=== PATIENT | male | born 1975 | race Caucasian/White ===

== ENCOUNTER → 2020-02-04 | Outpatient (CLI) | payer MEDICARE ==
[~2020-02-04] MED LIST: B/P MEDS; METH4TAB PO
== END ==
LOC: CARD 11:20
PROVIDERS: ATTEND Nurse Practitioner Family
DX: I51.7 Cardiomegaly (principal)
CPT/HCPCS: 93306

== ENCOUNTER → 2021-04-27 | Outpatient (CLI) | payer MEDICARE ==
[~2021-04-27] MED LIST changes: +GADOBUTROL 10 MMOL/10 ML (GADAVIST) VIAL IV ONE
--- NOTE | 2021-04-27 17:14 | Diagnostic Imaging Report ---
PROCEDURE: MRI lumbar spine with and without contrast. TECHNIQUE: Multiplanar, multisequence MRI of the lumbar spine was performed with and without contrast. INDICATION: Worsened low back pain, previous lumbar instrumentation several years ago. COMPARISON: Exam is compared with a study performed 09/27/2011. Comparison study is a hla-oteayvlo-nzysumob MR prior to the surgical changes described below. FINDINGS: Since the previous exam, lumbosacral posterior and interbody fusion has been performed with bipedicular screws and vertical rods and L5 decompressive laminectomy. There is no fluid collection within the operative bed. No suspicious enhancing epidural tissue. Thecal sac at the level of laminectomy is successfully decompressed. There is also resolution of the left lateral recess impingement and improvements in what is now mild or ejsz-qi-lejeafiy biforaminal stenosis. Blooming artifact somewhat limits the L4-L5 level. There are buckled thickened ligamenta flava and hypertrophic facet arthrosis. The posterior element hypertrophy has increased in the interim, now with moderate resultant canal stenosis with moderate biforaminal narrowing increased. The L3-L4 disc shows desiccation and stature loss, increased from prior with mild endplate spurring and mild biforaminal stenosis but no substantial canal narrowing. The remaining levels are unremarkable. The conus appeared normal. There is normal dispersal of the nerves of the cauda equina. IMPRESSION: 1. Increased stenosis at L4-L5 spinal canal and neural foramina is secondary to progressive hypertrophic facet arthrosis and increased thickening of the ligamenta flava as well as similar endplate osteophytes and disc bulge. 2. Favorable changes at the L5-S1 level where there is decompressive laminectomy, improved foraminal stenosis, and resolution of canal stenosis. Dictated by: Dictated on workstation # [id number]
== END ==
LOC: RAD 10:24
PROVIDERS: ATTEND Nurse Practitioner Family
DX: M48.07 Spinal stenosis, lumbosacral region (principal); M47.816 Spondylosis without myelopathy or radiculopathy, lumbar region; M25.78 Osteophyte, vertebrae; M51.26 Other intervertebral disc displacement, lumbar region; M89.38 Hypertrophy of bone, other site; Z98.890 Other specified postprocedural states
CPT/HCPCS: 72158

== ENCOUNTER 2022-12-24 18:29 | Inpatient (IN) | payer MEDICARE ==
[~2022-12-24] VITALS: Ht 175.3 cm; Wt 86.0 kg
[2022-12-24] VITALS (10 sets, daily range): BP systolic 102–151; BP diastolic 86–119
[~2022-12-24 18:29] MED LIST changes: -GADOBUTROL 10 MMOL/10 ML (GADAVIST) VIAL IV ONE
[2022-12-24] MEDS ORDERED: LACTATED RINGERS 1,000 ML IV ONE ×2 (18:45→20:00)
[2022-12-24] MEDS ORDERED: NALOXONE 0.4 MG/ML 1 ML (NARCAN) VIAL ONE (19:20)
[2022-12-24] MEDS ORDERED: NALOXONE 2 MG/2 ML (NARCAN) SYR ONE (19:21)
[2022-12-24 19:30] LABS: BASOPHILS % (AUTO) 0 % (0-10); EOSINOPHILS # (AUTO) 0.2 10^3/uL (0.0-0.3); EOSINOPHILS % (AUTO) 1 % (0-10); HEMATOCRIT 43 % (40-54); HEMOGLOBIN 14.4 g/dL (13.3-17.7); LYMPHOCYTES # (AUTO) 1.2 10^3/uL (1.0-4.0); LYMPHOCYTES % (AUTO) 9 % (12-44); MEAN CORPUSCULAR HEMOGLOBIN 31 pg (25-34); MEAN CORPUSCULAR HGB CONC 34 g/dL (32-36); MEAN CORPUSCULAR VOLUME 92 fL (80-99); MEAN PLATELET VOLUME 9.5 fL (9.0-12.2); MONOCYTES % (AUTO) 7 % (0-12); NEUTROPHILS # (AUTO) 11.1 10^3/uL (1.8-7.8); NEUTROPHILS % (AUTO) 83 % (42-75); PLATELET COUNT 317 10^3/uL (130-400); WHITE BLOOD COUNT 13.4 10^3/uL (4.3-11.0)
[2022-12-24] MEDS ORDERED: NALOXONE 2 MG/2 ML (NARCAN) SYR IV ONE (19:30)
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
[2022-12-24 19:33] LABS: BILIRUBIN,URINE NEGATIVE (NEGATIVE); CLARITY,URINE SL CLOUDY; COLOR,URINE YELLOW; GLUCOSE, URINE (UA) NEGATIVE (NEGATIVE); KETONES,URINE NEGATIVE (NEGATIVE); LEUKOCYTE ESTERASE ,URINE 2+ (NEGATIVE); NITRITE,URINE NEGATIVE (NEGATIVE); PROTEIN,URINE 2+ (NEGATIVE)
[2022-12-24 19:47] LABS: BACTERIA,URINE MODERATE /HPF; RENAL EPITHELIAL CELLS,URINE 0-2 /HPF
[2022-12-24 19:48] LABS: GRANULAR CASTS,URINE 0-2 /LPF
[2022-12-24 19:50] LABS: AMORPHOUS SEDIMENT,UR MOD AMOR URATES /LPF
[2022-12-24 19:54] LABS: AMPHETAMINE SCREEN, URINE NEGATIVE (NEGATIVE); BARBITURATE SCREEN URINE NEGATIVE (NEGATIVE); BENZODIAZEPINES SCREEN URINE NEGATIVE (NEGATIVE); CANNABINOID SCREEN, URINE NEGATIVE (NEGATIVE); COCAINE SCREEN URINE NEGATIVE (NEGATIVE); METHADONE STAT NEGATIVE (NEGATIVE); OPIATE SCREEN URINE NEGATIVE (NEGATIVE); OXYCODONE STAT NEGATIVE (NEGATIVE); PROPOXYPHENE STAT NEGATIVE (NEGATIVE); TRICYCLIC ANTIDEPRESSANTS SCRE POSITIVE (NEGATIVE)
[2022-12-24] MEDS ORDERED: NS IV 1000 ML 1,000 ML IV SCH (20:00)
[2022-12-24] MEDS ORDERED: CEFEPIME INJECTION 1,000 MG in NS (IVPB) 50 ML IV ONE (20:00)
--- NOTE | 2022-12-24 20:26 | Diagnostic Imaging Report ---
INDICATION: Sepsis, hypotension. COMPARISON: None available. TECHNIQUE: Single radiograph of the chest dated 12/24/2022. FINDINGS: The cardiac silhouette is enlarged. No significant pulmonary vascular congestion. The lungs are clear focal pulmonary opacity. No pleural effusion. No pneumothorax. No acute osseous abnormality. IMPRESSION: Cardiomegaly without pulmonary vascular congestion or additional superimposed acute cardiopulmonary abnormality. Dictated by: Dictated on workstation # [id number]
[2022-12-24 20:49] LABS: ALANINE AMINOTRANSFERASE 19 U/L (0-55); ALBUMIN 3.9 GM/DL (3.2-4.5); ALKALINE PHOSPHATASE 64 U/L (40-136); AMYLASE 78 U/L (25-125); BILIRUBIN,TOTAL 0.3 MG/DL (0.1-1.0); BUN/CREATININE RATIO 10; CALCIUM 8.7 MG/DL (8.5-10.1); CARBON DIOXIDE 17 MMOL/L (21-32); CHLORIDE 104 MMOL/L (98-107); CREATINE KINASE 91 U/L (30-200); CREATININE SERUM 3.63 MG/DL (0.60-1.30); GFR ESTIMATED 20; GLUCOSE 96 MG/DL (70-105); LIPASE 67 U/L (8-78); MAGNESIUM 2.1 MG/DL (1.6-2.4); POTASSIUM 4.4 MMOL/L (3.6-5.0); SODIUM 136 MMOL/L (135-145); TOTAL PROTEIN 6.9 GM/DL (6.4-8.2)
--- NOTE | 2022-12-24 20:53 | Diagnostic Imaging Report ---
PROCEDURE: CT head wo r/o stroke. TECHNIQUE: Multiple contiguous axial images were obtained through the brain without the use of intravenous contrast. Auto Exposure Controls were utilized during the CT exam to meet ALARA standards for radiation dose reduction. INDICATION: Stroke, neural deficit. COMPARISON: None available. FINDINGS: No intracranial hemorrhage. No intracranial mass, mass effect, midline shift, herniation, hydrocephalus, or extra-axial fluid collection. No definite CT evidence of an acute ischemic infarction. The orbits are unremarkable. The paranasal sinuses are clear. The calvarium and extra calvarial soft tissues are unremarkable. IMPRESSION: No acute intracranial abnormality. Should there remain clinical concern for recent infarction, further evaluation with MRI of brain would be recommended. Dictated by: Dictated on workstation # [id number]
[2022-12-24 21:12] LABS: CREATINE KINASE MB 2.1 NG/ML (<6.6); TSH (THYROID ANALYZER) 0.79 UIU/ML (0.35-4.94)
[2022-12-24 21:44] LABS: SALICYLATE < 5.0 MG/DL (5.0-20.0)
[2022-12-24 21:46] LABS: ACETAMINOPHEN < 10 UG/ML (10-30)
[2022-12-24] MEDS ORDERED: LIDOCAINE UROJET 2% GEL 10 ML PKG TOP ONE (22:15)
[2022-12-24] MEDS ORDERED: D5 LR IV SOLUTION 1,000 ML IV SCH (22:15)
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
[2022-12-24] MEDS ORDERED: CATHETER FLUSH 10 ML SYR IVP PRN (22:45)
[2022-12-24] MEDS ORDERED: NS IV 500 ML 500 ML IV PRN (22:45)
[2022-12-24] MEDS: LACTATED RINGERS 1,000 ML IV SCH (23:09)
[2022-12-24] MEDS ORDERED: VASOPRESSIN INJECTION 20 UNIT in NS (IVPB) 100 ML IV SCH (23:15)
[2022-12-24] MEDS ORDERED: EPINEPHrine 1 MG INJECTION 4 MG in NS (IVPB) 248 ML IV SCH (23:15)
[2022-12-24] MEDS ORDERED: ONDANSETRON 4 MG/2 ML (SDV) Z0FRAN IV PRN (23:15)
[2022-12-24] MEDS ORDERED: LABETALOL HCL 20 MG/4 ML VIAL IV ONE (23:30)
[2022-12-24] MEDS: NOREPINEPHRINE 8 MG/250 ML 250 ML IV SCH (23:47)
[2022-12-25] VITALS (33 sets, daily range): BP systolic 79–208; BP diastolic 38–126
[2022-12-25] MEDS: NOREPINEPHRINE 8 MG/250 ML 250 ML IV SCH (00:58)
[2022-12-25 04:11] LABS: BASOPHILS % (AUTO) 0 % (0-10); EOSINOPHILS # (AUTO) 0.5 10^3/uL (0.0-0.3); EOSINOPHILS % (AUTO) 4 % (0-10); HEMATOCRIT 39 % (40-54); HEMOGLOBIN 12.9 g/dL (13.3-17.7); LYMPHOCYTES # (AUTO) 1.6 10^3/uL (1.0-4.0); LYMPHOCYTES % (AUTO) 13 % (12-44); MEAN CORPUSCULAR HEMOGLOBIN 31 pg (25-34); MEAN CORPUSCULAR HGB CONC 33 g/dL (32-36); MEAN CORPUSCULAR VOLUME 94 fL (80-99); MEAN PLATELET VOLUME 9.6 fL (9.0-12.2); MONOCYTES # (AUTO) 1.1 10^3/uL (0.0-1.0); MONOCYTES % (AUTO) 9 % (0-12); NEUTROPHILS % (AUTO) 73 % (42-75); PLATELET COUNT 258 10^3/uL (130-400); WHITE BLOOD COUNT 12.3 10^3/uL (4.3-11.0)
[2022-12-25 04:37] LABS: ALBUMIN 3.1 GM/DL (3.2-4.5); BILIRUBIN,TOTAL 0.2 MG/DL (0.1-1.0); CALCIUM 8.1 MG/DL (8.5-10.1); CREATININE SERUM 2.46 MG/DL (0.60-1.30); MAGNESIUM 2.1 MG/DL (1.6-2.4); PHOSPHORUS 3.7 MG/DL (2.3-4.7); POTASSIUM 4.1 MMOL/L (3.6-5.0); TOTAL PROTEIN 5.4 GM/DL (6.4-8.2)
[2022-12-25] MEDS ORDERED: POTASSIUM CL 10MEQ/50ML IVPB 50 ML IV SCH (06:00)
[2022-12-25] MEDS ORDERED: MAGNESIUM 1 GM/100 ML IVPB 100 ML IV SCH (06:00)
[2022-12-25] MEDS ORDERED: KCL 20 MEQ TAB (K-DUR) PO SCH (06:00)
[2022-12-25 06:24] LABS: ABG BASE EXCESS -3.7 MMOL/L (-2.5-2.5); ABG OXYGEN SATURATION 97 % (94-100); ABG PCO2 42 MMHG (35-45); ABG PO2 83 MMHG (79-93); ABG TCO2 22.9 MMOL/L (21.0-31.0)
[2022-12-25 06:27] LABS: PATIENT TEMP 36.2; VENTILATOR NO
[2022-12-25 06:28] LABS: ABG PH 7.32 (7.37-7.43)
--- NOTE | 2022-12-25 08:15 | History & Physical ---
HPI History of Present Illness: Pt reports he doesn't know what happened, he started passing out repeatedly and his girlfriend called EMS. He was doing his normal activities, cleaning house, riding bike and thinks maybe he got too hot. He admits pain in mid chest right around sternum which is gone. He also felt dizzy. Denies headache, nasal congestion, sore throat, cough, abdominal pain, nausea, vomiting, diarrhea, constipation, pain with urination. He reports he took his gabapentin and flexeril yesterday, reports he has 800 mg gabapentin and flexeril 10 mg and took 6 gabapentin and 4 of flexeril, states his right leg was killing him related to sciatica. He states he does take that much sometimes when he is really hurting. Date seen by provider: December 25, 2022 Time Seen by Provider: 08:10 Attending Physician [place] PCP Admitting Physician: Bailey Maurer MD Attending Physician: Bailey Maurer MD Consult Date of Admission December 24, 2022 at 21:56 Home Medications Home Medications Reviewed patient Home Medication Reconciliation performed by pharmacy medication reconciliations coroner transport technician and/or nursing. Patients Allergies have been reviewed. Allergies Coded Allergies: No Known Drug Allergies (Unverified , 01/06/12) [id number] Hx Patient Social History Smoking Status: Never a Smoker Alcohol Use?: No Have you traveled recently?: No Immunizations Up To Date Influenza Vaccine Up-to-Date: No; Not Current Past Medical History PMHx: Back pain Abdominal hernia HTN PSurgHx: Eye surgery for cyst with one and muscle problems with other Hernia surgery Back surgery Tonsillectomy Pyloric stenosis repair Review of Systems ([facility]) Constitutional: see HPI EENTM: see HPI Respiratory: see HPI Cardiovascular: see HPI Gastrointestinal: see HPI Genitourinary: see HPI Musculoskeletal: see HPI Reviewed Test Results Reviewed Test Results Lab Laboratory Tests Test 12/24/22 18:50 12/24/22 19:27 12/24/22 21:44 12/25/22 03:47 Range/Units White Blood Count 13.4 H 12.3 H 4.3-11.0 10^3/uL Red Blood Count 4.67 4.14 L 4.30-5.52 10^6/uL Hemoglobin 14.4 12.9 L 13.3-17.7 g/dL Hematocrit 43 39 L 40-54 % Mean Corpuscular Volume 92 94 80-99 fL Mean Corpuscular Hemoglobin 31 31 25-34 pg Mean Corpuscular Hemoglobin Concent 34 33 32-36 g/dL Red Cell Distribution Width 13.0 13.2 10.0-14.5 % Platelet Count 317 258 130-400 10^3/uL Mean Platelet Volume 9.5 9.6 9.0-12.2 fL Immature Granulocyte % (Auto) 0 1 % Neutrophils (%) (Auto) 83 H 73 42-75 % Lymphocytes (%) (Auto) 9 L 13 12-44 % Monocytes (%) (Auto) 7 9 0-12 % Eosinophils (%) (Auto) 1 4 0-10 % Basophils (%) (Auto) 0 0 0-10 % Neutrophils # (Auto) 11.1 H 9.0 H 1.8-7.8 10^3/uL Lymphocytes # (Auto) 1.2 1.6 1.0-4.0 10^3/uL Monocytes # (Auto) 1.0 1.1 H 0.0-1.0 10^3/uL Eosinophils # (Auto) 0.2 0.5 H 0.0-0.3 10^3/uL Basophils # (Auto) 0.0 0.0 0.0-0.1 10^3/uL Immature Granulocyte # (Auto) 0.1 0.1 0.0-0.1 10^3/uL Sodium Level 136 138 135-145 MMOL/L Potassium Level 4.4 4.1 3.6-5.0 MMOL/L Chloride Level 104 111 H 98-107 MMOL/L Carbon Dioxide Level 17 L 16 L 21-32 MMOL/L Anion Gap 15 H 11 5-14 MMOL/L Blood Urea Nitrogen 37 H 31 H 7-18 MG/DL Creatinine 3.63 H 2.46 H 0.60-1.30 MG/DL Estimat Glomerular Filtration Rate 20 31 BUN/Creatinine Ratio 10 13 Glucose Level 96 130 H 70-105 MG/DL Lactic Acid Level 0.93 0.50-2.00 MMOL/L Calcium Level 8.7 8.1 L 8.5-10.1 MG/DL Corrected Calcium 8.8 8.8 8.5-10.1 MG/DL Magnesium Level 2.1 2.1 1.6-2.4 MG/DL Total Bilirubin 0.3 0.2 0.1-1.0 MG/DL Aspartate Amino Transf (AST/SGOT) 15 14 5-34 U/L Alanine Aminotransferase (ALT/SGPT) 19 14 0-55 U/L Alkaline Phosphatase 64 59 40-136 U/L Total Creatine Kinase 91 75 30-200 U/L Creatine Kinase MB 2.1 <6.6 NG/ML Myoglobin 337.4 H 10.0-92.0 NG/ML Total Protein 6.9 5.4 L 6.4-8.2 GM/DL Albumin 3.9 3.1 L 3.2-4.5 GM/DL Amylase Level 78 25-125 U/L Lipase 67 8-78 U/L TSH [place] Testing 0.79 0.35-4.94 UIU/ML Salicylates Level < 5.0 L 5.0-20.0 MG/DL Acetaminophen Level < 10 L 10-30 UG/ML Serum Alcohol < 10 <10 MG/DL Urine Color YELLOW Urine Clarity SL CLOUDY Urine pH 5.0 5-9 Urine Specific [place] >=1.030 1.016-1.022 Urine Protein 2+ H NEGATIVE Urine Glucose (UA) NEGATIVE NEGATIVE Urine Ketones NEGATIVE NEGATIVE Urine Nitrite NEGATIVE NEGATIVE Urine Bilirubin NEGATIVE NEGATIVE Urine Urobilinogen 0.2 < = 1.0 MG/DL Urine Leukocyte Esterase 2+ H NEGATIVE Urine RBC (Auto) 2+ H NEGATIVE Urine RBC 5-10 H /HPF Urine WBC 10-25 H /HPF Urine Squamous Epithelial Cells 2-5 /HPF Urine Renal Epithelial Cells 0-2 /HPF Urine Crystals PRESENT H /LPF Urine Amorphous Sediment MOD GLEN URATES H /LPF Urine Bacteria MODERATE H /HPF Urine Casts PRESENT /LPF Urine Hyaline Casts 5-10 H /LPF Urine Granular Casts 0-2 H /LPF Urine Mucus MODERATE H /LPF Urine Other /HPF Urine Culture Indicated YES Urine Opiates Screen NEGATIVE NEGATIVE Urine Oxycodone Screen NEGATIVE NEGATIVE Urine Methadone Screen NEGATIVE NEGATIVE Urine Propoxyphene Screen NEGATIVE NEGATIVE Urine Barbiturates Screen NEGATIVE NEGATIVE Ur Tricyclic Antidepressants Screen POSITIVE H NEGATIVE Urine Phencyclidine Screen NEGATIVE NEGATIVE Urine Amphetamines Screen NEGATIVE NEGATIVE Urine Methamphetamines Screen NEGATIVE NEGATIVE Urine Benzodiazepines Screen NEGATIVE NEGATIVE Urine Cocaine Screen NEGATIVE NEGATIVE Urine Cannabinoids Screen NEGATIVE NEGATIVE Phosphorus Level 3.7 2.3-4.7 MG/DL Test 12/25/22 06:15 12/25/22 12:13 Range/Units Blood Gas Puncture Site UNK Blood Gas Patient Temperature 36.2 Arterial Blood pH 7.32 *L 7.37-7.43 Arterial Blood Partial Pressure CO2 42 35-45 MMHG Arterial Blood Partial Pressure O2 83 79-93 MMHG Arterial Blood HCO3 22 L 23-27 MMOL/L Arterial Blood Total CO2 22.9 21.0-31.0 MMOL/L Arterial Blood Oxygen Saturation 97 94-100 % Arterial Blood Base Excess -3.7 L -2.5-2.5 MMOL/L Nathan Test UNK Blood Gas Ventilator Setting NO Blood Gas Inspired Oxygen 2% Sodium Level 138 135-145 MMOL/L Potassium Level 4.0 3.6-5.0 MMOL/L Chloride Level 109 H 98-107 MMOL/L Carbon Dioxide Level 19 L 21-32 MMOL/L Anion Gap 10 5-14 MMOL/L Blood Urea Nitrogen 25 H 7-18 MG/DL Creatinine 1.91 H 0.60-1.30 MG/DL Estimat Glomerular Filtration Rate 42 BUN/Creatinine Ratio 13 Glucose Level 91 70-105 MG/DL Calcium Level 8.8 8.5-10.1 MG/DL Radiology 12/24/22 CXR: IMPRESSION: Cardiomegaly without pulmonary vascular congestion or additional superimposed acute cardiopulmonary abnormality. 12/24/22 CT head no acute abnormalities Physical Exam-([facility]) Physical Exam Vital Signs VS - Last 72 Hours, by Label 12/24/22 12/24/22 12/24/22 12/24/22 18:29 20:00 21:52 22:09 Pulse 95 90 86 Resp 20 15 B/P (MAP) 90/69 (76) 133/92 Pulse Ox 100 98 100 O2 Delivery Room Air Nasal Cannula Nasal Cannula O2 Flow Rate 2.00 2.00 2.00 12/24/22 12/24/22 12/24/22 12/24/22 22:09 22:09 22:14 22:14 Pulse 85 89 90 Resp 39 18 12 B/P (MAP) 151/114 (120) 151/114 (120) 133/100 (108) 133/100 (108) Pulse Ox 98 100 95 O2 Delivery Room Air Room Air Room Air 12/24/22 12/24/22 12/24/22 12/24/22 22:15 22:15 22:15 22:30 Temp 36.4 Pulse 89 89 89 Resp 20 18 20 B/P (MAP) 114/99 (105) 114/99 (105) 139/111 (123) Pulse Ox 100 100 96 O2 Delivery Room Air Room Air 12/24/22 12/24/22 12/24/22 12/24/22 22:30 22:45 22:45 23:00 Pulse 87 91 90 85 Resp 12 18 12 20 B/P (MAP) 139/111 (123) 142/113 (120) 142/113 (120) 137/107 (126) Pulse Ox 98 92 96 99 O2 Delivery Room Air Room Air 12/24/22 12/24/22 12/24/22 12/24/22 23:00 23:12 23:12 23:15 Pulse 85 94 94 90 Resp 8 8 15 B/P (MAP) 137/107 (126) 141/110 (127) 141/110 (127) 140/119 (130) Pulse Ox 98 100 99 O2 Delivery Room Air Room Air 12/24/22 12/24/22 12/24/22 12/24/22 23:15 23:30 23:30 23:45 Temp 36.4 Pulse 93 93 93 92 Resp 16 11 11 11 B/P (MAP) 140/119 (130) 135/108 (123) 135/108 (123) 102/86 (95) Pulse Ox 100 99 97 95 O2 Delivery Room Air Room Air Room Air 12/24/22 12/25/22 12/25/22 12/25/22 23:45 00:00 00:02 00:15 Pulse 93 85 82 Resp 11 12 12 B/P (MAP) 102/86 (95) 88/77 (83) 104/73 (79) Pulse Ox 95 94 95 O2 Delivery Room Air Room Air Room Air 12/25/22 12/25/22 12/25/22 12/25/22 00:30 00:45 00:58 01:00 Pulse 81 80 79 80 Resp 12 16 12 B/P (MAP) 86/67 (73) 80/64 (69) 80/64 107/73 (84) Pulse Ox 94 96 100 12/25/22 12/25/22 12/25/22 12/25/22 01:00 01:15 01:16 01:30 Pulse 81 80 84 Resp 13 12 B/P (MAP) 208/126 (153) 208/126 112/38 (46) Pulse Ox 96 92 12/25/22 12/25/22 12/25/22 12/25/22 01:45 02:00 02:15 02:30 Pulse 84 81 85 85 Resp 12 12 12 11 B/P (MAP) 88/64 (72) 141/108 (124) 93/60 (70) 85/61 (71) Pulse Ox 94 95 96 96 12/25/22 12/25/22 12/25/22 12/25/22 02:45 03:00 03:15 03:30 Temp 36.0 Pulse 81 80 81 86 Resp 12 10 12 12 B/P (MAP) 106/71 (83) 123/89 (100) 124/90 (101) 92/54 (67) Pulse Ox 95 97 97 96 12/25/22 12/25/22 12/25/22 12/25/22 03:45 03:48 04:00 04:01 Pulse 85 77 Resp 12 12 11 B/P (MAP) 79/62 (70) 81/67 (76) 112/86 (97) Pulse Ox 96 95 O2 Delivery Room Air 12/25/22 12/25/22 12/25/22 12/25/22 04:06 04:15 04:30 04:45 Pulse 80 79 84 Resp 12 12 12 B/P (MAP) 122/88 (99) 134/109 (116) 116/84 (96) Pulse Ox 93 92 93 O2 Delivery Room Air 12/25/22 12/25/22 12/25/22 12/25/22 05:00 05:15 05:30 05:45 Pulse 82 82 84 81 Resp 10 10 11 10 B/P (MAP) 122/95 (99) 98/74 (82) 107/74 (80) 93/76 (82) Pulse Ox 100 94 93 94 12/25/22 12/25/22 12/25/22 12/25/22 06:00 06:15 06:30 06:45 Pulse 80 82 83 79 Resp 12 12 13 11 B/P (MAP) 91/72 (81) 96/77 (83) 113/72 (92) 98/78 (86) Pulse Ox 97 97 93 95 O2 Delivery Room Air 12/25/22 12/25/22 12/25/22 12/25/22 07:00 07:17 08:00 08:00 Pulse 80 81 84 Resp 13 10 B/P (MAP) 95/75 (82) 98/83 (88) Pulse Ox 96 100 O2 Delivery Room Air Room Air Room Air 12/25/22 12/25/22 12/25/22 12/25/22 09:00 10:00 11:00 11:27 Pulse 90 84 87 Resp 11 12 8 B/P (MAP) 128/90 (103) 120/80 (93) 128/84 (99) Pulse Ox 96 97 98 O2 Delivery Room Air Room Air Room Air Room Air 12/25/22 12/25/22 12/25/22 12/25/22 12:00 12:48 13:00 13:28 Temp 36.5 Pulse 98 93 96 97 Resp 8 19 18 B/P (MAP) 129/80 (96) 113/86 (95) 112/79 (90) Pulse Ox 95 95 95 O2 Delivery Room Air Room Air Room Air Capillary Refill : Less Than 3 Seconds General Appearance: WD/WN, no apparent distress Respiratory: lungs clear, normal breath sounds Cardiovascular: regular rate, rhythm, no murmur Gastrointestinal: normal bowel sounds, non tender, distended Extremities: no pedal edema Neurologic/Psychiatric: superintendent construction II-XII nml as tested, alert, normal mood/affect, oriented x 3; No abnormal cerebellar tests, No facial droop, No motor weakness Skin: warm/dry Assessment/Plan Assessment/Plan Admission Status: Inpatient Order (span 2 midnights) Reason for Inpatient Admission: Severe kidney injury requiring more than 48 hours for treatment (1) Hypotension Status: Resolved Assessment & Plan: Suspect secondary to combination of hypovolemia and medication overuse. Required norepi and multiple boluses overnight, this morning BP is normal off of norepinephrine, transfer to floor. Qualifiers: Qualified Codes: I95.89 - Other hypotension; E86.1 - Hypovolemia (2) Dehydration Status: Acute (3) Altered mental status Status: Resolved Assessment & Plan: Suspect secondary to over use of medication, mental status normal this morning. Qualifiers: Qualified Codes: R40.0 - Somnolence (4) Acute kidney failure Status: Acute Assessment & Plan: Suspect secondary to hypotension, improving with IVF, has adequate UOP and normal potassium. Monitor closely. (5) Metabolic acidosis Status: Acute Assessment & Plan: pH 7.32, Secondary to renal failure, improving with treatment of STEVE. (6) Syncopal episodes Status: Acute Assessment & Plan: Suspect secondary to above, no clear evidence of other secondary cause. TSH normal. CT head with no acute abnormalities. (7) DVT prophylaxis Status: Acute Assessment & Plan: Heparin BAILEY MAURER MD December 25, 2022 08:15
[2022-12-25] MEDS: CEFEPIME 1,000 MG/NS 50 ML IVPB IV SCH ×4 (08:34→16:13)
[2022-12-25] MEDS ORDERED: CEFEPIME 1,000 MG/NS 50 ML IVPB IV SCH ×2 (09:00)
[2022-12-25] MEDS ORDERED: HYDR25TA4 PO (11:09)
[2022-12-25] MEDS ORDERED: ATOR40TA70 PO (11:09)
[2022-12-25] MEDS ORDERED: CYCL10TA25 PO (11:09)
[2022-12-25] MEDS ORDERED: LISI40TA9 PO (11:09)
[2022-12-25] MEDS ORDERED: MELO7.5T46 PO (11:09)
[2022-12-25] MEDS ORDERED: GABA800T10 PO (11:09)
[2022-12-25 12:36] LABS: CALCIUM 8.8 MG/DL (8.5-10.1)
[2022-12-25 12:41] LABS: CREATININE SERUM 1.91 MG/DL (0.60-1.30)
[2022-12-25] MEDS: LACTATED RINGERS 1,000 ML IV SCH (21:06)
[2022-12-26] VITALS (8 sets, daily range): BP systolic 138–195; BP diastolic 85–111
[2022-12-26] MEDS: CEFEPIME 1,000 MG/NS 50 ML IVPB IV SCH ×2 (00:05)
[2022-12-26] MEDS ORDERED: lisINopril 40 MG (PRINIVIL) TABLET ONE (03:45)
[2022-12-26] MEDS: lisINopril 40 MG (PRINIVIL) TABLET PO SCH (03:46)
[2022-12-26 05:29] LABS: HEMATOCRIT 42 % (40-54); HEMOGLOBIN 14.1 g/dL (13.3-17.7); MEAN CORPUSCULAR HEMOGLOBIN 31 pg (25-34); MEAN CORPUSCULAR HGB CONC 33 g/dL (32-36); MEAN CORPUSCULAR VOLUME 93 fL (80-99); MEAN PLATELET VOLUME 9.6 fL (9.0-12.2); PLATELET COUNT 286 10^3/uL (130-400); WHITE BLOOD COUNT 12.7 10^3/uL (4.3-11.0)
[2022-12-26 05:46] LABS: ALBUMIN 3.6 GM/DL (3.2-4.5); POTASSIUM 3.9 MMOL/L (3.6-5.0)
[2022-12-26 05:47] LABS: CALCIUM 9.3 MG/DL (8.5-10.1)
[2022-12-26 05:49] LABS: TOTAL PROTEIN 6.3 GM/DL (6.4-8.2)
[2022-12-26 05:50] LABS: BILIRUBIN,TOTAL 0.2 MG/DL (0.1-1.0)
[2022-12-26 05:52] LABS: CREATININE SERUM 1.29 MG/DL (0.60-1.30)
[2022-12-26] MEDS ORDERED: cloNIDine 0.1 MG (CATAPRES) TAB ONE (06:14)
[2022-12-26] MEDS ORDERED: cloNIDine 0.1 MG (CATAPRES) TAB PO ONE (06:15)
[2022-12-26] MEDS ORDERED: CEFEPIME 1,000 MG/NS 50 ML IVPB IV SCH ×2 (08:30)
[2022-12-26] MEDS ORDERED: lisINopril 20 MG (PRINIVIL) TABLET PO NR (11:00)
--- NOTE | 2022-12-26 11:06 | Progress Note ---
Subjective Subjective/Events-last exam Stomach is bothering him. Belching bad tasting. Right leg hurts the entire leg. States that he thinks his blood pressure medicine isn't helping him well at home either. Is having normal BM. States he thinks one of the medicines is giving him a headache. Reports he has been up out of bed without difficulty. Focused Exam Lactate Level 12/24/22 18:50: Lactic Acid Level 0.93 Time of Focused Exam: 20:30 Objective Exam Last Set of Vital Signs Vital Signs Date Time Temp Pulse Resp B/P (MAP) Pulse Ox O2 Delivery O2 Flow Rate FiO2 12/26/22 08:30 Room Air 12/26/22 07:35 165/90 (115) 12/26/22 07:29 36.1 95 18 98 12/24/22 21:52 2.00 2.00 Capillary Refill : Less Than 3 Seconds I&O Intake and Output 12/26/22 00:00 Intake Total 2810 ml Output Total 2625 ml Balance 185 ml Intake Oral 1810 ml IV Total 1000 ml Output Urine Total 2625 ml # Bowel Movements 1 General: Alert, No Acute Distress Lungs: Clear to Auscultation Heart: Regular Rate, No Murmurs, Other (2+ pedal pulses bilaterally) Abdomen: Normal Bowel Sounds, Soft Extremities: No Edema Neuro: Normal Speech Psych/Mental Status: Mood NL Results/Procedures Lab Laboratory Tests 12/25/22 12:13: Sodium Level 138, Potassium Level 4.0, Chloride Level 109H, Carbon Dioxide Level 19L, Anion Gap 10, Blood Urea Nitrogen 25H, Creatinine 1.91H, Estimat Glomerular Filtration Rate 42, BUN/Creatinine Ratio 13, Glucose Level 91, Calcium Level 8.8 12/26/22 05:16: Sodium Level 138, Potassium Level 3.9, Chloride Level 108H, Carbon Dioxide Level 22, Anion Gap 8, Blood Urea Nitrogen 23H, Creatinine 1.29, Estimat Glomerular Filtration Rate 68, BUN/Creatinine Ratio 18, Glucose Level 99, Calcium Level 9.3, White Blood Count 12.7H, Red Blood Count 4.56, Hemoglobin 14.1, Hematocrit 42, Mean Corpuscular Volume 93, Mean Corpuscular Hemoglobin 31, Mean Corpuscular Hemoglobin Concent 33, Red Cell Distribution Width 13.2, Platelet Count 286, Mean Platelet Volume 9.6, Corrected Calcium 9.6, Total Bilirubin 0.2, Aspartate Amino Transf (AST/SGOT) 12, Alanine Aminotransferase (ALT/SGPT) 17, Alkaline Phosphatase 69, Total Protein 6.3L, Albumin 3.6 Microbiology 12/24/22 MRSA Screen - Final, Complete MRSA not isolated 12/24/22 Blood Culture - Preliminary, Resulted No growth 12/24/22 Urine Culture - Final, Complete NO GROWTH Radiology 12/24/22 CXR: IMPRESSION: Cardiomegaly without pulmonary vascular congestion or additional superimposed acute cardiopulmonary abnormality. 12/24/22 CT head no acute abnormalities Assessment/Plan Assessment/Plan (1) Hypotension Status: Resolved Assessment & Plan: Suspect secondary to combination of hypovolemia and medication overuse. Required norepi and multiple boluses overnight, this morning BP is normal off of norepinephrine, transfer to floor. 12/26 now hypertensive. Qualifiers: Qualified Codes: I95.89 - Other hypotension; E86.1 - Hypovolemia (2) Dehydration Status: Acute (3) Altered mental status Status: Resolved Assessment & Plan: Suspect secondary to over use of medication, mental status normal this morning. Qualifiers: Qualified Codes: R40.0 - Somnolence (4) Acute kidney failure Status: Resolved Assessment & Plan: Suspect secondary to hypotension, improving with IVF, has adequate UOP and normal potassium. Monitor closely. (5) Metabolic acidosis Status: Resolved Assessment & Plan: pH 7.32, Secondary to renal failure, improving with treatment of STEVE. (6) Syncopal episodes Status: Acute Assessment & Plan: Suspect secondary to above, no clear evidence of other secondary cause. TSH normal. CT head with no acute abnormalities. (7) Hypertension Status: Chronic Assessment & Plan: Resume home lisinopril and hydrochlorothiazide Qualifiers: Qualified Codes: I10 - Essential (primary) hypertension (8) DVT prophylaxis Status: Acute Assessment & Plan: Heparin ALFRED HOLMAN MD December 26, 2022 11:06
--- NOTE | 2022-12-26 17:46 | Physician Query Clarification ---
Physician Query-General Query to Physician: The medical record reflects the following clinical evidence: Clinical Indicators: Altered mental status and Somnolence on admission "Suspect secondary to over use of medication" now (12/26) "normal mental status" Risk Factor(s): Taking cyclobenzaprine and gabapentin at home per patient report was taking far more than the prescribed dose recently Treatment: Neuro monitoring, CT Head, Multiple doses of Narcan in ER, Gabapentin and Cyclobenzaprine being held Toxic encephalopathy, present on admission now resolved Other explanation of clinical findings Unable to determine (no explanation for clinical findings) Please clarify and document your clinical opinion in the progress notes and discharge summary including the definitive and/or presumptive diagnosis, (suspected or probable), related to the above clinical findings. Please include clinical findings supporting your diagnosis. Xin Suarez, MSN, RN Clinical Human Resources Operations Coordinator [phone] [email or web address] PHYSICIAN RESPONSE: Based on the clinical findings in the record, please respond to the query above on this document as an addendum. Physician Response: Physician Response Toxic encephalopathy present on admit, now resolved If you have questions please contact: Envelope Cutter: Ext: Thank you for your time and cooperation. Clinical Human Resources Operations Coordinator/Envelope Cutter This is a permanent part of the medical record XIN SUAREZ December 26, 2022 17:46 ALFRED HOLMAN MD December 27, 2022 16:19
[2022-12-26] MEDS: LACTATED RINGERS 1,000 ML IV SCH (21:45)
[2022-12-27 03:10] VITALS: BP 146/98
[2022-12-27] MEDS: LACTATED RINGERS 1,000 ML IV SCH (05:10)
[2022-12-27 06:56] LABS: HEMATOCRIT 42 % (40-54); HEMOGLOBIN 14.2 g/dL (13.3-17.7); MEAN CORPUSCULAR HEMOGLOBIN 31 pg (25-34); MEAN CORPUSCULAR HGB CONC 34 g/dL (32-36); MEAN CORPUSCULAR VOLUME 92 fL (80-99); MEAN PLATELET VOLUME 10.1 fL (9.0-12.2); PLATELET COUNT 253 10^3/uL (130-400); WHITE BLOOD COUNT 9.6 10^3/uL (4.3-11.0)
[2022-12-27 07:10] LABS: CALCIUM 9.1 MG/DL (8.5-10.1); CREATININE SERUM 1.06 MG/DL (0.60-1.30); POTASSIUM 3.7 MMOL/L (3.6-5.0)
[2022-12-27 07:24] VITALS: BP 167/106
[2022-12-27] MEDS ORDERED: AMLO-250 PO (08:13)
[2022-12-27] MEDS ORDERED: GABA800T10 PO (08:13)
[2022-12-27] MEDS ORDERED: CYCL10TA25 PO (08:13)
[2022-12-27] MEDS: lisINopril 40 MG (PRINIVIL) TABLET PO SCH (09:12)
--- NOTE | 2022-12-27 12:08 | Discharge Summary ---
Discharge Summary Hospital Course Problems/Diagnosis: (1) Hypotension Status: Resolved Resolution Date/Time: 12/25/22 @ 14:32 Assessment & Plan: Suspect secondary to combination of hypovolemia and medication overuse. Required norepi and multiple boluses overnight, this morning BP is normal off of norepinephrine, transfer to floor. 12/26 now hypertensive. Qualifiers: Qualified Codes: I95.89 - Other hypotension; E86.1 - Hypovolemia (2) Dehydration Status: Resolved Resolution Date/Time: 12/27/22 @ 16:24 (3) Altered mental status Status: Resolved Resolution Date/Time: 12/25/22 @ 14:32 Assessment & Plan: Suspect secondary to over use of medication, mental status normal this morning. Qualifiers: Qualified Codes: R40.0 - Somnolence (4) Acute kidney failure Status: Resolved Resolution Date/Time: 12/26/22 @ 14:19 Assessment & Plan: Suspect secondary to hypotension, improved with IVF, has adequate UOP and normal potassium. (5) Metabolic acidosis Status: Resolved Resolution Date/Time: 12/26/22 @ 14:19 Assessment & Plan: pH 7.32, Secondary to renal failure, improving with treat ment of STEVE. (6) Syncopal episodes Status: Acute Assessment & Plan: Suspect secondary to above, no clear evidence of other secondary cause. TSH normal. CT head with no acute abnormalities. (7) Hypertension Status: Chronic Assessment & Plan: Resume home lisinopril and hydrochlorothiazide, added amlodipine due to persistent BP above 160s. Qualifiers: Qualified Codes: I10 - Essential (primary) hypertension (8) Toxic encephalopathy Status: Resolved Resolution Date/Time: 12/27/22 @ 16:26 Hospital Course Date of Admission: December 24, 2022 at 21:56 Admission Diagnosis : Family Physician/Provider: Nasrin Cardenas Aprn Date of Discharge: 12/27/22 Discharge Diagnosis: See problem ist Hospital Course: See problem list Labs and Pending Lab Test: Laboratory Tests 12/27/22 05:37: White Blood Count 9.6, Red Blood Count 4.52, Hemoglobin 14.2, Hematocrit 42, Mean Corpuscular Volume 92, Mean Corpuscular Hemoglobin 31, Mean Corpuscular Hemoglobin Concent 34, Red Cell Distribution Width 12.8, Platelet Count 253, Mean Platelet Volume 10.1, Sodium Level 136, Potassium Level 3.7, Chloride Level 102, Carbon Dioxide Level 26, Anion Gap 8, Blood Urea Nitrogen 15, Creatinine 1.06, Estimat Glomerular Filtration Rate 86, BUN/Creatinine Ratio 14, Glucose Level 97, Calcium Level 9.1 Microbiology 12/24/22 MRSA Screen - Final, Complete MRSA not isolated 12/24/22 Blood Culture - Preliminary, Resulted No growth 12/24/22 Urine Culture - Final, Complete NO GROWTH Home Meds Active Amlodipine Besylate 5 Mg Tablet 5 Mg PO DAILY Gabapentin 800 Mg Tablet 800 Mg PO TID Cyclobenzaprine HCl 10 Mg Tablet 10 Mg PO TID Reported Meloxicam 7.5 Mg Tablet 7.5 Mg PO DAILY Hydrochlorothiazide 25 Mg Tablet 25 Mg PO DAILY Atorvastatin Calcium 40 Mg Tablet 40 Mg PO HS Lisinopril 40 Mg Tablet 40 Mg PO DAILY Assessment/Pt DC Instructions Follow up with primary within a week of discharge. Discharge Diet: No Restrictions Discharge Physical Examination Allergies: Coded Allergies: No Known Drug Allergies (Unverified , 01/06/12) General Appearance: No Apparent Distress, WD/WN Respiratory: Lungs Clear, Normal Breath Sounds Cardiovascular: Regular Rate, Rhythm, No Murmur Skin: Normal Color, Warm/Dry Neurologic/Psychiatric: Alert, Normal Mood/Affect ALFRED HOLMAN MD December 27, 2022 12:08
== END 2022-12-27 10:52 | disposition home or self-care (01) | DRG 917 ==
LOC: EDUNIT# 18:30 → ER 18:38 → ICU 21:56 → 4TH 12-25 13:25
PROVIDERS: ADMIT Family Medicine; ATTEND Family Medicine
DX: T42.6X1A Poisoning by other antiepileptic and sedative-hypnotic drugs, accidental (unintentional), initial encounter (principal); G92.9 Unspecified toxic encephalopathy; N17.9 Acute kidney failure, unspecified; E87.21 Acute metabolic acidosis; T48.1X1A Poisoning by skeletal muscle relaxants [neuromuscular blocking agents], accidental (unintentional), initial encounter; I95.2 Hypotension due to drugs; E86.1 Hypovolemia; E86.0 Dehydration; R55 Syncope and collapse; I10 Essential (primary) hypertension; M54.31 Sciatica, right side
CPT/HCPCS: 36415; 51702; 70450; 71045; 80048; 80053; 80306; 80320; 80329; 81000; 82150; 82436; 82550; 82553; 82805; 83605; 83690; 83735; 83874; 84100; 84133; 84300; 84443; 85025; 85027; 87040; 87081; 87088; 87491; 87591; 93005; 93041